=== PATIENT | female | born 1990 | race Caucasian/White ===

== ENCOUNTER → 2017-02-12 | Day surgery (SDC) | payer OTHER ==
--- NOTE | 2017-02-12 15:07 | RADIOLOGY REPORT (SQ) ---
EXAM DESCRIPTION: ARTHRO WRIST INJECTION; FLUORO/NEEDLE PLACEMENT COMPLETED DATE/TIME: 02/12/2017 2:14 pm REASON FOR STUDY: CARPAL TUNNEL SYNDROME, RIGHT UPPER LIMB (G56.01) G56.01 CARPAL TUNNEL SYNDROME, RIGHT UPPER LIMB COMPARISON: None. FLUOROSCOPY TIME: 29 seconds 2 digital radiographic images saved to PACS. LIMITATIONS: None. PROCEDURE: Procedure, risks, benefits and alternatives explained to patient who then gave written co nsent. The dorsal right wrist was marked at the radioscaphoid joint, and a time-out was called for co rrect marking verification. Radiocarpal site marked using fluoroscopic guidance. Wrist prepped and draped using sterile technique. Local anesthesia achieved using 1 mL of 1% lidocaine injection. 25 gauge needle introduced into the joint space under direct fluoroscopic visualization. Non-ionic contr ast instilled to confirm intra-articular position. Dilute gadolinium solution then injected. Needle removed and entry site covered with sterile bandage. No immediate complications noted. TECHNIQUE: Digital images acquired during fluoroscopy and stored on PACS. Patient immediately take n to the MR suite for additional imaging. INJECTION LOCATION: Right radiocarpal joint CONTRAST TYPE AND AMOUNT: 0.5 mL of Isovue-300 was injected to confirm intra-articular needle placeme nt followed by 2.5 mL of dilute gadolinium for MR arthrogram IMPRESSION: SUCCESSFUL NEEDLE PLACEMENT AND INJECTION FOR RIGHT WRIST MR ARTHROGRAM. COMMENT: Quality ID #[id number]: Final reports for procedures using fluoroscopy that document radiation exp osure indices, or exposure time and number of fluorographic images (if radiation exposure indices are not available) TECHNICAL DOCUMENTATION: JOB ID: [id number] [employer]- All Rights Reserved
--- NOTE | 2017-02-12 15:10 | RADIOLOGY REPORT (SQ) ---
EXAM DESCRIPTION: MRI RT UPPER JOINT WITH COMPLETED DATE/TIME: 02/12/2017 2:58 pm REASON FOR STUDY: CARPAL TUNNEL SYNDROME, RIGHT UPPER LIMB (G56.01) G56.01 CARPAL TUNNEL SYNDROME, RIGHT UPPER LIMB COMPARISON: Arthrogram same date TECHNIQUE: Right wrist post-arthrogram imaging includes T1 and T1 and T2 fat sat sequences. LIMITATIONS: None. FINDINGS: JOINT DISTENSION: Adequate. No loose body. There is a tear in the scapholunate ligament without widening of the joint space. This allows contrast from the radioscaphoid joint to enter the 2nd row of intercarpal joints BONE MARROW: No alteration of signal to suggest marrow replacement or edema. No occult fracture. No l arge osteophytes. CARPAL ALIGNMENT AND ARTICULATION: Normal congruity of sigmoid notch at level of distal ruj without p ositive or negative ulnar variance. Normal capitolunate angle. No widening of scapholunate articulati on. SCAPHOLUNATE LIGAMENT: There is a tear of the scapholunate ligament without widening of the scapholun ate interval. Contrast from the radioscaphoid joint extends through this defect into the middle role of intercarpal joints. This is best shown on coronal images 8 through 13. LUNATO-TRIQUETRAL LIGAMENT: Without tear. No contrast in middle carpal compartment. TFC COMPLEX: radial and ulnar attachments normal. Meniscus intact. Extensor carpi ulnaris tendon norm al without tendinopathy. No contrast in distal RUJ. EXTRINSIC LIGAMENTS AND DISTAL RADIO-ULNAR JOINT: Dorsal and volar distal RUJ ligaments intact withou t subluxation of the distal ulna with respect to the radius. 1-6 EXTENSOR COMPARTMENTS: Normal. Specifically no tendinopathy of the abductor pollicis longus or ex tensor pollicis brevis to suggest de Quervains syndrome. CARPAL TUNNEL AND MEDIAN NERVE: Normal volume and morphology of carpal tunnel proximal at the level o f the radiocarpal joint and distally at the hook of the hamate. No thickening or signal alteration of median nerve. OTHER: No other significant finding. IMPRESSION: Torn scapholunate ligament. TECHNICAL DOCUMENTATION: JOB ID: [id number] [employer]- All Rights Reserved
== END ==
LOC: EDSTATUS 02-11 13:00 → RAD 13:18
PROVIDERS: ATTEND Orthopaedic Surgery
PROC: BP0 Imaging, Non-Axial Upper Bones, Plain Radiography (ICD-10-PCS; principal; 2017-02-12)
DX: S63.591A Other specified sprain of right wrist, initial encounter (principal); X58.XXXA Exposure to other specified factors, initial encounter; G56.01 Carpal tunnel syndrome, right upper limb
CPT/HCPCS: 73222; 25246; 77002; A9576

== ENCOUNTER 2017-04-06 05:35 | Day surgery (SDC) | payer OTHER ==
[2017-03-23 08:23] LABS: ABSOLUTE BASOPHILS # (AUTO) 0.1 10^3/uL (0.0-0.2); ABSOLUTE EOSINOPHILS # (AUTO) 0.2 10^3/uL (0.0-0.6); ABSOLUTE LYMPHOCYTES (AUTO) 2.4 10^3/uL (0.5-4.7); ABSOLUTE MONOCYTES (AUTO) 0.5 10^3/uL (0.1-1.4); ABSOLUTE NEUT (AUTO) 4.4 10^3/uL (1.7-8.2); BASOPHILS % (AUTO) 0.8 % (0-2); EOSINOPHILS % (AUTO) 2.1 % (0-6); HEMATOCRIT 41.3 % (36.0-47.0); HGB HCT DIFFERENCE 0.7; LYMPHOCYTES % (AUTO) 32.4 % (13-45); MEAN CORPUSCULAR HEMOGLOBIN 27.5 pg (27.0-33.4); MEAN CORPUSCULAR HGB CONC 33.8 g/dL (32.0-36.0); MEAN CORPUSCULAR VOLUME 81 fl (80-97); MONOCYTES % (AUTO) 6.5 % (3-13); RED BLOOD COUNT 5.08 10^6/uL (3.72-5.28); RED CELL DISTRIBUTION WIDTH 14.7 % (11.5-14.0); SEGMENTED NEUTROPHILS % (AUTO) 58.2 % (42-78); WHITE BLOOD COUNT 7.5 10^3/uL (4.0-10.5)
[2017-03-23 08:26] LABS: APPEARANCE,URINE CLEAR; BILIRUBIN,URINE NEGATIVE (NEGATIVE); GLUCOSE, URINE NEGATIVE (NEGATIVE); KETONES,URINE NEGATIVE (NEGATIVE); LEUKOCYTE ESTERASE,URINE NEGATIVE (NEGATIVE); NITRITE,URINE NEGATIVE (NEGATIVE); PROTEIN,URINE NEGATIVE (NEGATIVE); URINE SPECIFIC GRAVITY 1.003; UROBILINOGEN,URINE NEGATIVE mg/dL (<2.0)
[2017-03-23 08:40] LABS: ANION GAP 12 (5-19); BLOOD UREA NITROGEN 8 mg/dL (7-20); CALCIUM 9.8 mg/dL (8.4-10.2); CARBON DIOXIDE 27 mmol/L (22-30); CHLORIDE 105 mmol/L (98-107); CREATININE RESULT 0.77 mg/dL (0.52-1.25); GLUCOSE 74 mg/dL (75-110); POTASSIUM 4.2 mmol/L (3.6-5.0); SODIUM 144.1 mmol/L (137-145)
--- NOTE | 2017-03-23 10:13 | RADIOLOGY REPORT (SQ) ---
EXAM DESCRIPTION: CHEST PA/LATERAL COMPLETED DATE/TIME: 03/23/2017 9:01 am REASON FOR STUDY: PRE-OP COMPARISON: None. EXAM PARAMETERS: NUMBER OF VIEWS: two views TECHNIQUE: Digital Frontal and Lateral radiographic views of the chest acquired. RADIATION DOSE: NA LIMITATIONS: none FINDINGS: LUNGS AND PLEURA: No opacities, masses or pneumothorax. No pleural effusion. MEDIASTINUM AND HILAR STRUCTURES: No masses or contour abnormalities. HEART AND VASCULAR STRUCTURES: Heart normal size. No evidence for failure. BONES: No acute findings. HARDWARE: None in the chest. OTHER: No other significant finding. IMPRESSION: NO SIGNIFICANT RADIOGRAPHIC FINDING IN THE CHEST. TECHNICAL DOCUMENTATION: JOB ID: [id number] [employer]- All Rights Reserved
--- NOTE | 2017-03-23 15:19 | EKG REPORT ---
SEVERITY:- NORMAL ECG - SINUS RHYTHM : Confirmed by: Felton Ledesma 23-Mar-2017 15:19:34
[~2017-04-06 05:35] MED LIST: CEFAZOLIN 2 GM/D5W RTU 2 GM/50 ML RTUPB IV PRN; LACTATED RINGERS 1000 ML IV PRN
[2017-04-06] MEDS ORDERED: MIDAZOLAM 2 MG/2 ML INJ ONE (06:40)
[2017-04-06] MEDS ORDERED: ONDANSETRON HCL INJ/PF 4 MG/2 ML SDV ONE (06:40)
[2017-04-06] MEDS ORDERED: LIDOCAINE 2% INJ-PF (20 MG/ML) 10 ML AMPUL ONE (06:40)
[2017-04-06] MEDS ORDERED: PROPOFOL INJ 200 MG/20 ML VIAL IV ONE (06:40)
[2017-04-06] MEDS ORDERED: FENTANYL CITRATE INJ/PF 100 MCG/2 ML AMPUL ONE (06:40)
[2017-04-06] MEDS ORDERED: IBUPROFEN INJ 800 MG/8 ML VIAL IV ONE (06:41)
[2017-04-06] MEDS ORDERED: ACETAMINOPHEN 100 ML IV ONE (06:41)
[2017-04-06] MEDS ORDERED: BUPIVACAINE HCL 0.5 % INJ/PF 30 ML SDV ONE (07:22)
[2017-04-06] MEDS ORDERED: PROMETHAZINE HCL INJ 25 MG/1 ML VIAL IV PRN ×2 (07:44)
[2017-04-06] MEDS ORDERED: FENTANYL CITRATE INJ/PF 100 MCG/2 ML AMPUL IV PRN ×3 (07:44)
[2017-04-06] MEDS ORDERED: MORPHINE SULFATE 10 MG/ML INJ IV PRN (07:44)
[2017-04-06] MEDS ORDERED: DIPHENHYDRAMINE HCL 50 MG/ML VIAL IV PRN (07:44)
[2017-04-06] MEDS ORDERED: OXYCODONE-ACETAMINOPHEN 5-325 MG TABLET PO PRN ×3 (07:44→09:52)
[2017-04-06] MEDS ORDERED: ONDANSETRON HCL INJ/PF 4 MG/2 ML SDV IV PRN ×2 (07:44→09:52)
[2017-04-06] MEDS ORDERED: MEPERIDINE HCL/PF INJ 25 MG/1 ML DISP.SYRIN IV PRN (07:44)
[2017-04-06] MEDS ORDERED: HYDROMORPHONE HCL INJ/PF 2 MG/ML AMPULE IV PRN (09:52)
--- NOTE | 2017-04-06 09:52 | PDOC DISCHARGE SUMMARY ---
Discharge Summary (SDC) - Discharge Final Diagnosis: Scapholunate Ligament Full Thickness Tear Date of Surgery: 04/06/17 Discharge Date: 04/06/17 Condition: Good Treatment or Instructions: Schedule Follow Up w/ Dr. Gamaliel Da Silva @ [facility] to be seen in 10-14 days or as scheduled [place]: [place]: [place]: Ice and elevate Keep splint clean/dry/intact. If your fingers become numb please unwrap the Jac wrap but leave the splint in place, if the sensation does not return within 30 minutes please return to the emergency department. May begin finger range of motion attempting to make full fist. Please use ibuprofen (Motrin or Advil) 600-800 mg every 8 hours as needed for pain or fever. You may also use acetaminophen (Tylenol) 1000 mg every 4-6 hours as needed for pain or fever. Please be aware that many medications contain acetaminophen, do not exceed a total of 1000 mg of acetaminophen every 6 hours. If ibuprofen and acetaminophen are not sufficient for your pain you may take the Percocet. Please be aware that the Percocet does contain Tylenol. Stool softener of choice when on pain medication. Prescriptions: Oxycodone HCl/Acetaminophen [Percocet 5-325 mg Tablet] 1 - 2 tab PO ASDIR PRN # [id number] tablet PRN Reason: Referrals: TEGAN ALMANZAR PA [Primary Care Provider] - Discharge Diet: As Tolerated Respiratory Treatments at Home: Deep Breathing/Coughing, Incentive Spirometer Discharge Activity: No Lifting Over 10 Pounds, No Lifting/Push/Pulling Report the Following to Your Physician Immediately: Unusual Bleeding, Redness, Swelling, Warmth, Increased Soreness
[2017-04-06] MEDS: FENTANYL CITRATE INJ/PF 100 MCG/2 ML AMPUL ONE ×2 (09:57→10:07)
--- NOTE | 2017-04-06 11:22 | Operative Report ---
Operative Report DATE OF SURGERY: 04/06/17 PREOPERATIVE DIAGNOSIS: Right Scapholunate Ligament Tear POSTOPERATIVE DIAGNOSIS: High-grade partial scapholunate ligament tear OPERATION: Right Wrist Arthroscopy. Open Repair Scapholunate Ligament SURGEON: SATHYA ERICKSON ANESTHESIA: GA COMPLICATIONS: None ESTIMATED BLOOD LOSS: Minimal PROCEDURE: Indication for above procedure: 26-year-old female with long-standing history of right wrist discomfort. We attempted multiple conservative measures including injections, anti- inflammatories, activity modification without resolution of her symptoms. Her symptoms did improve for a short period but then returned. Ultimately an MR arthrogram was obtained demonstrating torn scapholunate ligament. At that point the decision was made to proceed with operative intervention with possible open repair. Risks and benefits were explained to the patient she verbalized understanding consented for the procedure. Procedure In Detail: Patient was seen and evaluated in the preoperative holding area. The RIGHT upper extremity was initialized and marked. Patient received 2g of Ancef IV for bacterial prophylaxis. Patient was taken back to the operative room where transferred to the operative table and placed under general anesthesia. Once they were adequately anesthetized a nonsterile tourniquet was placed on the upper extremity. A surgical team debriefing was performed ensuring all instrumentation was available, the surgical procedure was discussed with possible concerns reviewed. The upper extremity was prepped with chlorhexidine and alcohol and draped in a sterile fashion. Patient was placed in the Acumed wrist distraction device. A timeout was done identifying correct patient, procedure and extremity everyone in attendance agree with this and verbalized no concerns. The extremity was exsanguinated the tourniquet was inflated to 250 mmHg. 18-gauge needle was used to confirm 3-4 portal, this was then established. Dry arthroscopy was performed. There is no evidence of radiocarpal degeneration. The membranous portion of the scapholunate ligament remained in continuity from the radiocarpal joint. Patient did have a increased sulcus of the lunate fossa with mild degeneration. No evidence of TFCC pathology on inspection. A 4-5 portal and a RU portal were established. The probe was introduced probing the TFCC without demonstrating. Patient had normal trampoline effect of the TFCC. There was some patulous of the membranous portion of the scapholunate ligament but no full-thickness tear appreciated. I then turned my attention to the midcarpal joint. A radial and ulnar midcarpal portal were established. Arthroscope was introduced into the radial midcarpal portal inspection of the lunotriquetral interval demonstrate no evidence of widening or step-off. I then switched the arthroscope into the midcarpal ulnar portal and used to probe to identify the scapholunate interval. There was some evidence of scapholunate instability. I was able to fit the width of the probe between the scapholunate interval. And thus felt open procedure was likely indicated. At that point the arthroscope was removed from the joint. Under C-arm fluoroscopy there was notable laxity with widening of the scapholunate interval from ulnar to radial deviation and thus I proceed with open procedure. The skin incisions of the radial midcarpal and 3-4 portal were connected. Blunt dissection was performed. Branches of the superficial radial nerve were retracted with the skin flap in a radial direction. Any small peripheral bleeding was coagulated with bipolar cautery. The interval between the third and fourth dorsal compartments was then identified. EPL was identified and protected. The fourth dorsal compartment was carefully elevated along with the distal portion of the second dorsal compartment. A T-shaped capsulotomy was made at the level of the scapholunate interval. The scapholunate ligament was then identified. There was weakening of the scapholunate ligament indicated by patulous tissue and notable laxity between the scapholunate interval and widening on fluoroscopy. I do not feel patient required complete reconstruction and thus proceeded with scapholunate ligament repair. First the scapholunate interval was reduced decreasing the gap and restore the scapholunate angle on lateral view. A small incision was made radially blunt dissection was performed down to the scaphoid retracting the superficial radial nerve branches and a 0.62 K wire was placed obliquely across the scapholunate interval maintaining my reduction. I then placed a 2.5 mm Arthrex mini anchor within the scaphoid and a second anchor within the lunate with the scaphoid anchor placed distally and lunate anchor placed approximately to decrease the rotatory subluxation. Utilizing the tension slide technique one limb from each anchor was tied to itself and then pulled tightly providing a internal brace type fixation finally secured.. Portions of the scapholunate with and secured with horizontal mattress sutures decreasing laxity of the scapholunate ligament. A portion of the dorsal radiocarpal ligament and dorsal intercarpal ligament from the T capsulotomy was secured to the anchors. I then closed the capsulotomy with interrupted remaining FiberWire suture. Patient had good range of motion with no evidence of instability. The K wire was then bent and cut above the skin and a Jurgan's ball placed. Final C-arm fluoroscopy demonstrated caodaism of scaphoid lunate alignment. No evidence of intercarpal widening with normal scapholunate and radiolunate angles. The wound was copiously irrigated with normal saline. Tourniquet was deflated and a peripheral bleeding was coagulated bipolar cautery into the wound was dry. Portion of the extensor retinaculum between the third and fourth dorsal compartments was loosely reapproximated with Monocryl suture. Subcutaneous tissues were closed with 3-0 Monocryl suture. Skin was closed with a running subcuticular 4-0 Monocryl. Arthroscopic portals were closed with simple subcuticular 4-0 Monocryl incisions were reinforced with Dermabond and Steri- Strips. 25 cc of 0.5% Marcaine without epinephrine was injected for postoperative pain control. Patient was placed in a dorsal and volar splint leaving the MP joints free. Sponge counts, instrument counts, needle counts counts were correct. Patient was then awoken from anesthesia. Transferred from the operating room table to the operating room stretcher. There was no intraoperative complications patient tolerated procedure well stable to PACU. Postoperative plan: Patient will be transitioned to a short arm cast at follow-up visit cast with any change at 3 weeks after that. Plan will be for pin removal at 8 weeks postoperatively. Will obtain radiographs at follow-up visit.
--- NOTE | 2017-04-06 12:29 | RADIOLOGY REPORT (SQ) ---
EXAM DESCRIPTION: NO CHG FLUORO; WRIST RIGHT 2 VIEWS COMPLETED DATE/TIME: 04/06/2017 9:52 am REASON FOR STUDY: RT WRIST PINNING ASSISTED WITH C ARM IN OR COMPARISON: None. FLUOROSCOPY TIME: 0.8 minutes 3 Images saved to PACS LIMITATIONS: None. PROCEDURE: Scapholunate pinning FINDINGS: Images document placement of a long pin through the scaphoid and the lunate. The scapholu pari interval is slightly widened. IMPRESSION: Scapholunate pinning. COMMENT: [id number]: Fluoroscopy time of the procedure is documented in the report. TECHNICAL DOCUMENTATION: JOB ID: [id number] [employer]- All Rights Reserved
--- NOTE | 2017-04-06 12:29 | RADIOLOGY REPORT (SQ) ---
EXAM DESCRIPTION: NO CHG FLUORO; WRIST RIGHT 2 VIEWS COMPLETED DATE/TIME: 04/06/2017 9:52 am REASON FOR STUDY: RT WRIST PINNING ASSISTED WITH C ARM IN OR COMPARISON: None. FLUOROSCOPY TIME: 0.8 minutes 3 Images saved to PACS LIMITATIONS: None. PROCEDURE: Scapholunate pinning FINDINGS: Images document placement of a long pin through the scaphoid and the lunate. The scapholu pari interval is slightly widened. IMPRESSION: Scapholunate pinning. COMMENT: [id number]: Fluoroscopy time of the procedure is documented in the report. TECHNICAL DOCUMENTATION: JOB ID: [id number] [employer]- All Rights Reserved
[2017-04-06 12:45] VITALS: BP 114/60
[2017-04-06] MEDS ORDERED: SUCCINYLCHOLINE CHLORIDE INJ 200 MG/10 ML VIAL ONE (13:12)
== END 2017-04-06 11:40 | disposition home or self-care (01) ==
LOC: OROUT 05:35
PROVIDERS: ATTEND Orthopaedic Surgery
PROC: 0RJN4ZZ Inspection of Right Wrist Joint, Percutaneous Endoscopic Approach (ICD-10-PCS; principal; 2017-04-06 07:30)
DX: S63.501A Unspecified sprain of right wrist, initial encounter (principal); X58.XXXA Exposure to other specified factors, initial encounter; E78.00 Pure hypercholesterolemia, unspecified; K21.9 Gastro-esophageal reflux disease without esophagitis; F17.210 Nicotine dependence, cigarettes, uncomplicated; Z79.51 Long term (current) use of inhaled steroids; Z79.899 Other long term (current) drug therapy
CPT/HCPCS: 93005; 36415; 85025; 81025; 80048; 81001; 71020; 73100; 93010; 25320; 29840; C1769; C1713; J2250; J3010; J0330; J2405; J2704; J3490; J0690; J0131; J1741; 01830